=== PATIENT | female | born 2000 | race Caucasian/White ===

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

== ENCOUNTER 2022-10-02 08:50 | Emergency (ER) | payer SELFPAY ==
[~2022-10-02] VITALS: Wt 57.6 kg
[2022-10-02] MEDS ORDERED: IBUPROFEN600 MG PO (09:51)
[2022-10-02] MEDS ORDERED: CLEOCIN HCL150 MG PO (09:51)
== END 2022-10-02 10:17 | disposition home or self-care (01) ==
LOC: ED 08:50
DX: K08.89 Other specified disorders of teeth and supporting structures (principal); Z88.0 Allergy status to penicillin; Z88.1 Allergy status to other antibiotic agents; Z79.899 Other long term (current) drug therapy; Z90.89 Acquired absence of other organs